=== PATIENT | male | born 1980 | race Caucasian/White ===

== ENCOUNTER 2025-02-09 04:55 | Emergency (ER) | payer BC ==
[~2025-02-09] VITALS: Ht 182.8 cm; Wt 95.3 kg
[2025-02-09] MEDS ORDERED: Albuterol Sulf/Ipratropium 3 ML VIAL NEB ONE ×2 (05:05→06:10)
[2025-02-09] MEDS ORDERED: ZITHROMAX250 MG PO (06:51)
[2025-02-09] MEDS ORDERED: PREDNISONE20 M1 PO (06:51)
== END 2025-02-09 07:01 | disposition home or self-care (01) ==
LOC: ED 04:55
DX: J45.901 Unspecified asthma with (acute) exacerbation (principal); F17.200 Nicotine dependence, unspecified, uncomplicated